=== PATIENT | female | born 1995 | race Two or more races ===

== ENCOUNTER 2018-05-22 18:02 | Emergency (ER) | payer SELFPAY ==
[2018-05-22] MEDS ORDERED: Acetaminophen 500 MG TAB ONE (18:21)
[2018-05-22] MEDS ORDERED: Ibuprofen 800 MG TAB ONE (18:53)
[2018-05-22] MEDS ORDERED: Dexamethasone 10 MG/ML VIAL ONE (18:57)
[2018-05-22 19:02] LABS: #Basophils 0.1 thou/uL (0.0-0.2); #Lymphocytes 1.2 thou/uL (1.20-3.40); #Monocytes 1.1 thou/uL (0.11-0.59); #Neutrophils 7.6 thou/uL (1.40-6.50); %Basophils 0.6 % (0.0-1.0); %Eosinophils 0.1 % (0.0-10.0); %Lymphocytes 12.3 % (28.0-48.0); %Monocytes 11.2 % (0.0-4.0); %Neutrophils 75.8 % (31.0-61.0); Hemoglobin 12.4 g/dL (12.0-16.0); Mean Corpuscular HGB CONC 32.4 g/dL (32.0-36.0); Mean Corpuscular Hemoglobin 27.9 pg (25.0-35.0); Mean Platelet Volume 10.3 fL (7.4-10.4); Platelet Count 141 thou/uL (130-400); RBC Distribution Width 12.9 % (11.5-14.5); Red Blood Cell (RBC) Count 4.44 mill/uL (4.00-5.20)
[2018-05-22 19:04] LABS: MONO NEGATIVE CONTROL ZONE White (Negative) (White); MONO POSITIVE CONTROL Pink Line (Positive) (PINK/RED); Mononucleosis NEGATIVE (NEGATIVE)
[2018-05-22 19:22] LABS: ALT (SGPT) 101 U/L (8-55); AST (SGOT) 51 U/L (5-34); Albumin 4.1 g/dL (3.5-5.0); Alkaline Phosphatase 71 U/L (40-150); Anion Gap 13 mmol/L (10-20); BUN (Urea Nitrogen) 10 mg/dL (7.0-18.7); Bilirubin, Total 0.7 mg/dL (0.2-1.2); Calc. Creatinine Clearance 0 mL/min (70-130); Calcium 9.2 mg/dL (7.8-10.44); Carbon Dioxide 23 mmol/L (22-29); Chloride 101 mmol/L (98-107); Estimated GFR-MDRD 89; Globulin 3.2 g/dL (2.4-3.5); Glucose 107 mg/dL (70-105); Protein, Total 7.3 g/dL (6.0-8.3); Sodium 133 mmol/L (136-145)
[2018-05-22 20:07] LABS: Clarity CLOUDY (Clear)
[2018-05-22 20:08] LABS: Bilirubin Unable to Interpret (Negative); Blood, Urine Unable to Interpret (Negative); Glucose, Urine (Dipstick) Unable to Interpret mg/dL (Negative); Leukocyte Unable to Interpret (Negative); Nitrite Unable to Interpret (Negative); Protein, Urine (Dipstick) Unable to Interpret mg/dL (Neg-Trace); Urobilinogen UNABLE TO INTERPRET mg/dL (0.2-1.0)
[2018-05-22 20:10] LABS: Bacteria/HPF 2+ HPF (None Seen); Hyaline Casts/LPF NONE SEEN LPF (0-3 Hyaline); RBC/HPF GREATER THAN 50-TNTC HPF (0-3)
[2018-05-22] MEDS ORDERED: Bicillin LA 1.2 MILLION UNITS/2 ML SYRINGE ONE (20:19)
== END 2018-05-22 20:47 | disposition home or self-care (01) ==
LOC: ERS 18:02
DX: J02.0 Streptococcal pharyngitis (principal); Z87.891 Personal history of nicotine dependence
CPT/HCPCS: 36415; 80053; 81003; 81015; 85025; 86308; 87081; 87086; 87430; 96372; J0561; J1100

== ENCOUNTER 2018-05-29 21:12 | Emergency (ER) | payer SELFPAY ==
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
== END 2018-05-29 23:04 | disposition home or self-care (01) ==
LOC: ERS 21:12
DX: J34.89 Other specified disorders of nose and nasal sinuses (principal); R68.84 Jaw pain; F41.9 Anxiety disorder, unspecified; Z87.891 Personal history of nicotine dependence
CPT/HCPCS: 70486

== ENCOUNTER 2018-08-23 20:13 | Emergency (ER) | payer SELFPAY ==
[2018-08-23 20:54] LABS: #Basophils 0.1 thou/uL (0.0-0.2); #Eosinphils 0.1 thou/uL (0.0-0.7); #Lymphocytes 1.6 thou/uL (1.20-3.40); #Monocytes 0.4 thou/uL (0.11-0.59); #Neutrophils 8.1 thou/uL (1.40-6.50); %Basophils 0.5 % (0.0-1.0); %Eosinophils 0.6 % (0.0-10.0); %Lymphocytes 15.7 % (21.0-51.0); %Monocytes 3.9 % (0.0-10.0); %Neutrophils 79.2 % (42.0-75.0); Hemoglobin 12.8 g/dL (12.0-16.0); Mean Corpuscular HGB CONC 32.1 g/dL (32.0-36.0); Mean Corpuscular Hemoglobin 28.4 pg (27.0-31.0); Mean Corpuscular Volume 88.5 fL (78.0-98.0); Mean Platelet Volume 9.8 fL (7.4-10.4); Platelet Count 200 thou/uL (130-400); Red Blood Cell (RBC) Count 4.51 mill/uL (4.20-5.40); White Blood Cell (WBC) Count 10.2 thou/uL (4.8-10.8)
[2018-08-23 21:21] LABS: ALT (SGPT) 30 U/L (8-55); AST (SGOT) 16 U/L (5-34); Albumin 4.3 g/dL (3.5-5.0); Alkaline Phosphatase 69 U/L (40-150); Anion Gap 10 mmol/L (10-20); BUN (Urea Nitrogen) 17 mg/dL (7.0-18.7); Bilirubin, Total 0.3 mg/dL (0.2-1.2); Calc. Creatinine Clearance 0 mL/min (70-130); Calcium 9.8 mg/dL (7.8-10.44); Carbon Dioxide 26 mmol/L (22-29); Chloride 106 mmol/L (98-107); Estimated GFR-MDRD 86; Globulin 3.1 g/dL (2.4-3.5); Glucose 89 mg/dL (70-105); Lipase 22 U/L (8-78); Potassium 4.5 mmol/L (3.5-5.1); Protein, Total 7.4 g/dL (6.0-8.3); Sodium 137 mmol/L (136-145)
[2018-08-23 22:32] LABS: Bilirubin Negative (Negative); Blood, Urine Negative (Negative); Clarity CLOUDY (Clear); Glucose, Urine (Dipstick) Negative (Negative); Leukocyte Large (Negative); Nitrite Negative (Negative); Pregnancy Test - Urine (BHCG) POSITIVE (Negative); Pregu Control Background? CLEAR/WHITE (CLR/WHITE); Pregu Control Bar Appear? YES (CONTROL BAR); Protein, Urine (Dipstick) Negative (Neg-Trace); Specific Gravity, Urine 1.027 (1.002-1.036)
[2018-08-23 22:33] LABS: Specific Gravity 1.027 (1.002-1.036)
[2018-08-23 22:34] LABS: Bacteria/HPF None Seen HPF (None Seen); Pathc Cast-AUWi Flag 1.45 (0-2.49); RBC/HPF 0-3 HPF (0-3); WBC/HPF 21-50 HPF (0-3)
[2018-08-23 22:43] LABS: Trichomonas/HPF 2+ HPF (None Seen)
[2018-08-23 22:46] LABS: Hyaline Casts/LPF 0-3 HYALINE CAST LPF (0-3 Hyaline)
[2018-08-24] MEDS ORDERED: metroNIDAZOLE 250 MG TAB ONE (00:45)
[2018-08-24] MEDS ORDERED: Lidocaine 1% PF 5 ML VIAL ONE (00:45)
[2018-08-24] MEDS ORDERED: Azithromycin 250 MG TAB ONE (00:45)
[2018-08-24] MEDS ORDERED: cefTRIAXone\\ROCEPHIN 250 MG VIAL ONE (00:45)
--- NOTE | 2018-08-24 07:56 | ULT ---
PELVIC ULTRASOUND WITH GRAYSCALE AND DOPPLER COLORFLOW IMAGING AND SPECTRAL ANALYSIS: CLINICAL HISTORY: Positive urine test with pelvic pain. FINDINGS: There is evidence of a gestational sac. Internal pole is not visualized. Internal rounded ech ogenicity indicates a yolk sac. No evidence of free pelvic fluid or significant subchorionic hemorrh age. Doppler evaluation is performed, which reveals flow to each ovary. Utilizing gestational sac diameter, the approximate ultrasound age of the gestation is 5 weeks 6 days . Stated clinical dates are 6 weeks. IMPRESSION: Evidence to indicate an early intrauterine gestation with gestational sac and yolk sac slightly less than 6 days by ultrasound parameters. Therefore, recommend correlation with beta hCG values, as well as imaging followup to document appropriate development of the intrauterine gestation. CODE T
[2018-08-24 21:52] LABS: Chlamydia by PCR Not Detected (NotDetected); GC by PCR Not Detected (NotDetected)
== END 2018-08-24 01:11 | disposition home or self-care (01) ==
LOC: ERS 20:13
DX: O23.591 Infection of other part of genital tract in pregnancy, first trimester (principal); O98.311 Other infections with a predominantly sexual mode of transmission complicating pregnancy, first trimester; A59.01 Trichomonal vulvovaginitis; O99.341 Other mental disorders complicating pregnancy, first trimester; F41.9 Anxiety disorder, unspecified; Z87.891 Personal history of nicotine dependence; Z3A.01 Less than 8 weeks gestation of pregnancy
CPT/HCPCS: 36415; 76856; 80053; 81003; 81015; 81025; 83690; 85025; 87480; 87491; 87510; 87591; 87660; 96372; J0696; J2001

== ENCOUNTER 2018-10-18 19:09 | Emergency (ER) | payer MEDICAID, SELFPAY ==
[2018-10-18 20:47] LABS: #Basophils 0.1 thou/uL (0.0-0.2); #Eosinphils 0.1 thou/uL (0.0-0.7); #Lymphocytes 1.7 thou/uL (1.20-3.40); #Monocytes 0.6 thou/uL (0.11-0.59); #Neutrophils 8.3 thou/uL (1.40-6.50); %Basophils 0.5 % (0.0-1.0); %Eosinophils 1.2 % (0.0-10.0); %Lymphocytes 15.6 % (21.0-51.0); %Monocytes 5.6 % (0.0-10.0); %Neutrophils 77.1 % (42.0-75.0); Hemoglobin 11.4 g/dL (12.0-16.0); Mean Corpuscular HGB CONC 33.2 g/dL (32.0-36.0); Mean Corpuscular Volume 87.4 fL (78.0-98.0); Mean Platelet Volume 10.1 fL (7.4-10.4); Platelet Count 163 thou/uL (130-400); Red Blood Cell (RBC) Count 3.93 mill/uL (4.20-5.40); White Blood Cell (WBC) Count 10.7 thou/uL (4.8-10.8)
--- NOTE | 2018-10-18 22:02 | ULT ---
ULTRASOUND OBSTETRICAL: DATE: 10-18-18 HISTORY: 23-year-old female in early second trimester of presents with pelvic pain and leaking fl uid x 10 days. FINDINGS: number: Flores lie: Cephalic Maternal cervix: 6 cm in length, closed. Placenta: Anterior and low lying Amniotic fluid volume: Subjectively normal. heart rate: 155 bpm It is too early to evaluate anatomy in detail. biometry: Head circumference (HC): 9.7 cm 14 w 3 d Biparietal diameter (BPD): 2.6 cm 14 w 4 d Abdominal circumference (AC): 7.9 cm 14 w 2 d Femur length (FL): 1.3 cm 13 w 5 d Average ultrasound age (AUA): 14 w 1 d Estimated date of delivery (LUCY): 04-17-2019 Last menstrual period (LMP): 07-12-2018 Gestational age by LMP: 14 w 0 d Estimated weight (EFW): Too early to estimate. IMPRESSION: 1. Live very early 2nd trimester intrauterine gestation. 2. Estimated gestational age of 14 weeks, 1 day. 3. Cephalic lie. 4. No evidence of complications. JUSTICE Vinson POS: [facility]
[2018-10-19 00:01] LABS: Bilirubin Negative (Negative); Blood, Urine Negative (Negative); Clarity CLEAR (Clear); Glucose, Urine (Dipstick) Negative (Negative); Leukocyte Negative (Negative); Nitrite Negative (Negative); Protein, Urine (Dipstick) Negative (Neg-Trace); Specific Gravity, Urine 1.033 (1.002-1.036); Urobilinogen 0.2 mg/dL (0.2-1.0); pH, Urine 5.5 (5.0-9.0)
== END 2018-10-19 00:39 | disposition home or self-care (01) ==
LOC: ERS 19:09
DX: O99.89 Other specified diseases and conditions complicating pregnancy, childbirth and the puerperium (principal); R39.81 Functional urinary incontinence; O99.342 Other mental disorders complicating pregnancy, second trimester; Z3A.14 14 weeks gestation of pregnancy; Z87.891 Personal history of nicotine dependence
CPT/HCPCS: 36415; 76856; 81003; 84702; 85025; 86900; 86901; 93976

== ENCOUNTER 2018-11-08 15:07 | Outpatient (CLI) | payer MEDICAID ==
--- NOTE | 2018-11-08 16:11 | ULT ---
EXAM: OB ultrasound COMPARISON: None HISTORY: female. Evaluate size, dates, and anatomy. TECHNIQUE: Multiplanar grayscale and color Doppler images were obtained in a transabdominal ult rasound. FINDINGS: There is a single live intrauterine with heart rate of 158 bpm. A limited s urvey was performed which is unremarkable. This was limited secondary to patient's body habitus. The head, lateral ventricles, heart, stomach, umbilical cord insertion, spine, bladder, and extremiti es were unremarkable. Average age of the fetus based off today's examination is 17 weeks 1 day. BPD 3.73 cm -- 17 weeks 3 days HC 14.02 cm -- 17 weeks 3 days AC 11.53 cm -- 17 weeks 2 days FL 2.31 cm -- 17 weeks 0 days The placenta is anterior in location without focal abnormality. Amniotic fluid volume is subjectivel y within normal limits. There is no evidence of placenta previa. IMPRESSION: Single live intrauterine with estimated age of 17 weeks 1 day.
== END 2018-11-08 15:08 | disposition home or self-care (01) ==
LOC: SCSULT 15:07
PROVIDERS: ATTEND Nurse Practitioner
DX: Z34.82 Encounter for supervision of other normal pregnancy, second trimester (principal); Z3A.17 17 weeks gestation of pregnancy
CPT/HCPCS: 76805

== ENCOUNTER 2018-12-14 14:12 | Outpatient (CLI) | payer OTHER ==
--- NOTE | 2018-12-14 15:25 | ULT ---
OB ULTRASOUND: 12/14/18 INDICATIONS: Size and dates and anatomy. There is a single viable intrauterine . Gestational age by ultrasound is 22 weeks, 3 days. BPD: 21 week, 5 days HC: 22 week, 3 days AC: 22 week, 3 days FL: 22 week, 6 days EFW: 508 grams, 22 week, 3 days. Placenta: Anterior. Presentation: Footling breech. Amniotic fluid: Adequate. PARMJIT: 13.69 cm. Cervical length: 6.1 cm. heart rate: 155 beats per minute. anatomy evaluated include intracranial contents, although somewhat limited due to position. No abnormality seen. Four chamber heart, stomach, kidneys, cord insertion, bladder, spine, facial featu res, extremities and three vessel cord were all imaged. The facial features and spine were limited du e to position. No abnormality identified. IMPRESSION: 22 week, 3 day gestation by ultrasound. POS: [facility]
== END 2018-12-14 14:13 | disposition home or self-care (01) ==
LOC: BICULT 14:12
PROVIDERS: ATTEND Obstetrics & Gynecology
DX: Z34.82 Encounter for supervision of other normal pregnancy, second trimester (principal); Z3A.22 22 weeks gestation of pregnancy
CPT/HCPCS: 76805

== ENCOUNTER 2018-12-28 21:32 | Emergency (ER) | payer OTHER | END 2018-12-28 22:25 | disposition home or self-care (01) | LOC: ERS 21:32 | DX: O98.812 Other maternal infectious and parasitic diseases complicating pregnancy, second trimester (principal); B37.3 Candidiasis of vulva and vagina; O99.342 Other mental disorders complicating pregnancy, second trimester; F41.9 Anxiety disorder, unspecified; Z87.891 Personal history of nicotine dependence; Z3A.24 24 weeks gestation of pregnancy | CPT/HCPCS: 87480; 87510; 87660; 99283 ==

== ENCOUNTER 2019-02-17 10:31 | Outpatient (CLI) | payer OTHER ==
--- NOTE | 2019-02-17 11:36 | ULT ---
EXAM: OB ultrasound COMPARISON: 12/14/2018 HISTORY: Gestational diabetes. TECHNIQUE: Multiplanar grayscale and color Doppler images were obtained in a transabdominal ult rasound. FINDINGS: There is a single live intrauterine with heart rate of 144 bpm. Estimated weight is 2487 g. Average age of the fetus based off today's examination is 34 weeks 2 days. BPD 8.26 cm -- 33 weeks 2 days HC 30.70 cm -- 34 weeks 2 days AC 31.66 cm -- 35 weeks 5 days FL 6.52 cm -- 33 weeks 5 days The placenta is anterior in location without focal abnormality. PARMJIT is 16.32 cm which is normal. The cervix is normal in length. There is no evidence of placenta previa. IMPRESSION: Single live intrauterine with estimated age of 34 weeks 2 days. Sizes greater t arce dates. These findings were more concordant on the previous ultrasound.
== END 2019-02-17 10:32 | disposition home or self-care (01) ==
LOC: BICULT 10:31
PROVIDERS: ATTEND Nurse Practitioner
DX: O24.419 Gestational diabetes mellitus in pregnancy, unspecified control (principal); Z3A.34 34 weeks gestation of pregnancy
CPT/HCPCS: 76816

== ENCOUNTER 2019-02-20 18:30 | Emergency (ER) | payer OTHER ==
[2019-02-20] MEDS ORDERED: Lidocaine 1% PF 5 ML VIAL ONE (21:00)
[2019-02-20] MEDS ORDERED: Azithromycin 250 MG TAB ONE (21:00)
[2019-02-20] MEDS ORDERED: cefTRIAXone\\ROCEPHIN 250 MG VIAL ONE (21:00)
[2019-02-20 21:06] LABS: Bilirubin Negative (Negative); Blood, Urine Small (Negative); Glucose, Urine (Dipstick) Negative (Negative); Leukocyte Large (Negative); Nitrite Negative (Negative); Protein, Urine (Dipstick) Negative (Neg-Trace); Urobilinogen 0.2 mg/dL (Less than 2)
[2019-02-20 21:11] LABS: Clarity Cloudy (Clear)
[2019-02-20 21:13] LABS: Bacteria/HPF 3+ HPF (None Seen); Trichomonas/HPF 2+ HPF (None Seen); WBC/HPF Greater Than 50 HPF (0-3)
[2019-02-22 22:37] LABS: Chlamydia by PCR Not Detected (NotDetected); GC by PCR Not Detected (NotDetected)
== END 2019-02-20 21:42 | disposition home or self-care (01) ==
LOC: ERS 18:30
DX: O23.593 Infection of other part of genital tract in pregnancy, third trimester (principal); O23.43 Unspecified infection of urinary tract in pregnancy, third trimester; O99.343 Other mental disorders complicating pregnancy, third trimester; F41.9 Anxiety disorder, unspecified; Z87.891 Personal history of nicotine dependence; Z3A.32 32 weeks gestation of pregnancy
CPT/HCPCS: 81003; 81015; 87086; 87480; 87491; 87510; 87591; 87660; 96372; 99283; J0696; J2001

== ENCOUNTER 2019-03-11 18:08 | Emergency (ER) | payer OTHER | END 2019-03-11 18:37 | disposition home or self-care (01) | LOC: ERS 18:08 | DX: O99.89 Other specified diseases and conditions complicating pregnancy, childbirth and the puerperium (principal); R21 Rash and other nonspecific skin eruption; O24.419 Gestational diabetes mellitus in pregnancy, unspecified control; O99.013 Anemia complicating pregnancy, third trimester; O99.343 Other mental disorders complicating pregnancy, third trimester; F41.9 Anxiety disorder, unspecified; Z87.891 Personal history of nicotine dependence; Z3A.34 34 weeks gestation of pregnancy; Z79.899 Other long term (current) drug therapy | CPT/HCPCS: 99282 ==

== ENCOUNTER 2019-04-01 16:15 | Day surgery (SDC) | payer OTHER ==
[2019-04-01 17:34] VITALS: BMI 46.0
[2019-04-01] MEDS ORDERED: hydrALAZINE 20 MG/ML VIAL SLOW IVP PRN (17:45)
--- NOTE | 2019-04-01 18:19 | HP ---
TIME OF EVALUATION: 1735 hours. REASON FOR EVALUATION: The patient was sent from [facility] from S[facility]hal (nurse practitioner) for monitoring. HISTORY OF PRESENT ILLNESS: This is a 23-year-old primigravida with an EDC of April 17, putting her within the EGA of 37 weeks and 5 days. She was seen earlier at [facility] with S[facility]hal (she usually sees Dr. Herrera) and was sent over here for biophysical profile due to "nondeterminant NST." She has a history of gestational diabetes and she takes insulin because metformin was not controlling her sugars. She has good movement and denies contractions or leakage of fluid. REVIEW OF SYSTEMS: Complete review of systems was completed and is otherwise negative unless specified in the HPI. PAST MEDICAL HISTORY: Negative. PAST SURGICAL HISTORY: Negative. GYNECOLOGICAL HISTORY: Significant for Trichomonas x2 this both treated. MEDICATIONS: Includes her insulin. She takes 10 units of Levemir in the morning and then 9 units of NovoLog with meals. ALLERGIES: NONE. PHYSICAL EXAMINATION: VITAL SIGNS: Her initial blood pressure was 130/83, she is afebrile. heart tones are in the 150s. GENERAL: Clinically, she is in no acute distress, and the uterus is soft and nontender. On perineal inspection, there is no evidence of vaginal bleeding or ruptured membranes. heart tracing shows heart rate of 130s to 140s currently with some minimal variability, but earlier when she first arrived, there was moderate variability with accelerations. There are no pathological decelerations. ASSESSMENT: This is a 23-year-old, G1, P0, with A2 diabetes at 37 weeks and 5 days, states good glycemic control. Here for biophysical profile. Her nonstress test is currently undergoing a sleep cycle, as initially was reactive. PLAN: 1. We will monitor the patient here in Labor and Delivery and continue with blood pressure checks. 2. I have ordered a biophysical profile. Job ID: [id number]
--- NOTE | 2019-04-01 18:35 | ULT ---
US Biophysical Profile: 04/01/2019 5:46 PM CLINICAL HISTORY: 37 week female with gestational diabetes. COMPARISON: None. FINDINGS: heart rate: 149 bpm. Biophysical profile: 8 of 8 IMPRESSION: Normal biophysical profile
--- NOTE | 2019-04-01 18:36 | PDOC.EVN ---
Event Note - Event Note Event Note: BPP 05/05 F/U thursday BPs ok
== END 2019-04-01 18:55 | disposition home or self-care (01) ==
LOC: L&D/OP 16:15
PROVIDERS: ATTEND Obstetrics & Gynecology
DX: O24.414 Gestational diabetes mellitus in pregnancy, insulin controlled (principal); Z3A.37 37 weeks gestation of pregnancy
CPT/HCPCS: 76819; 99282

== ENCOUNTER 2019-04-08 05:30 | Inpatient (IN) | payer OTHER ==
[2019-04-08] MEDS ORDERED: Ondansetron PF 4 MG/2 ML Vial IVP PRN (06:08)
[2019-04-08] MEDS ORDERED: HYDROcodone/Acetaminophen 5/325 mg Tablet PO PRN ×2 (06:08)
[2019-04-08] MEDS ORDERED: hydrALAZINE 20 MG/ML VIAL SLOW IVP PRN (06:08)
[2019-04-08] MEDS ORDERED: Promethazine HCl 25 MG/ML VIAL IM PRN (06:08)
[2019-04-08] MEDS ORDERED: Docusate 100 MG CAP PO PRN (06:08)
[2019-04-08] MEDS ORDERED: Zolpidem Tartrate 5 MG TAB PO PRN (06:08)
[2019-04-08] MEDS ORDERED: Ibuprofen 800 MG TAB PO PRN (06:08)
[2019-04-08] MEDS ORDERED: Lidocaine 1% (PF) 30 ML VIAL SC PRN (06:08)
[2019-04-08] MEDS ORDERED: NS / Oxytocin 40 units/1000ml 1,000 ML IV PRN (06:08)
[2019-04-08] MEDS ORDERED: Lactated Ringer's 1,000 ML IV SCH (06:15)
[2019-04-08] MEDS: Lactated Ringer's 1,000 ML IV SCH (08:40)
[2019-04-08 09:04] LABS: Hemoglobin 11.1 g/dL (12.0-16.0); Mean Corpuscular HGB CONC 33.3 g/dL (32.0-36.0); Mean Corpuscular Hemoglobin 27.9 pg (27.0-31.0); Mean Corpuscular Volume 83.9 fL (78.0-98.0); Mean Platelet Volume 10.7 fL (7.4-10.4); Platelet Count 130 thou/uL (130-400); RBC Distribution Width 13.3 % (11.5-14.5); Red Blood Cell (RBC) Count 3.98 mill/uL (4.20-5.40); White Blood Cell (WBC) Count 8.4 thou/uL (4.8-10.8)
[2019-04-08] MEDS: NS w/ Oxytocin 10 units 500 ML IV SCH ×2 (09:15→23:31)
[2019-04-08 09:39] LABS: Syphilis Antibody Nonreactive (Nonreactive); Syphilis Antibody Index 0.02 S/CO (<1.00 Non-Reactive)
[2019-04-08 09:43] LABS: HBSAg Index 0.15 S/CO (0-0.99); Hep B Surf Ag Non-Reactive S/CO (NonReactive)
[2019-04-08] MEDS ORDERED: HUMULIN R 100 UNITS in Sodium Chloride 0.9% 100 ML IVPB SCH (09:45)
[2019-04-08] MEDS ORDERED: Insulin Regular 300 UNITS/3 ML VIAL IVP SCH (10:00)
[2019-04-08] MEDS: Butorphanol Tartrate 1 MG/ML VIAL SLOW IVP PRN (23:30)
[2019-04-09] MEDS: Butorphanol Tartrate 1 MG/ML VIAL SLOW IVP PRN ×2 (00:46→02:17)
[2019-04-09] MEDS ORDERED: Fentanyl 4 mcg/Bup 0.1% Cadd 100 ML ONE ×2 (03:09→12:09)
[2019-04-09] MEDS ORDERED: Lidocaine 1.5%/Epinephrine 1:200,000 5 ML AMPUL IJ ONE (03:11)
[2019-04-09] MEDS ORDERED: diphenhydrAMINE 50 MG/ML VIAL IVP PRN ×2 (09:17→16:45)
[2019-04-09] MEDS ORDERED: Acetaminophen 325 MG TAB PO PRN (09:17)
[2019-04-09] MEDS ORDERED: Lactated Ringer's 500 ML IV PRN (09:17)
[2019-04-09] MEDS ORDERED: Ondansetron PF 4 MG/2 ML Vial IVP PRN ×3 (09:17→17:00)
[2019-04-09] MEDS ORDERED: ePHEDrine/0.9% NaCl/PF SYRINGE 50 mg/10 ml SLOW IVP PRN (09:17)
[2019-04-09] MEDS ORDERED: Promethazine HCl 25 MG/ML VIAL IM PRN ×2 (09:17→16:45)
[2019-04-09] MEDS ORDERED: Naloxone HCl 0.4 mg/ml Vial IVP PRN ×4 (09:17→16:45)
[2019-04-09] MEDS ORDERED: Fentanyl 4 mcg/Bupivacaine 0.1% Cassette 100 ML EPIDURAL SCH (09:30)
[2019-04-09] MEDS ORDERED: Communication Order-Pharmacy FS SCH ×2 (09:30→16:45)
[2019-04-09] MEDS: NS w/ Oxytocin 10 units 500 ML IV SCH (11:09)
[2019-04-09] MEDS ORDERED: Carboprost 250 MCG/ML AMP ONE (12:48)
[2019-04-09] MEDS ORDERED: Bicitra 30 ML UDCUP ONE (13:12)
[2019-04-09] MEDS: Lactated Ringer's 1,000 ML IV SCH (13:52)
[2019-04-09] MEDS ORDERED: Oxytocin 10 UNITS/ML VIAL ONE ×2 (14:19→15:38)
[2019-04-09] MEDS ORDERED: Lidocaine 2% 10 ML INJ ONE (14:19)
[2019-04-09] MEDS ORDERED: Lidocaine 2% PF 5 ML VIAL ONE (14:20)
[2019-04-09] MEDS ORDERED: Fentanyl 100 MCG/2 ML VIAL ONE ×2 (15:04→15:51)
[2019-04-09] MEDS ORDERED: MORPHINE 5 MG/10 ML PF VIAL ONE (15:05)
[2019-04-09] MEDS ORDERED: Midazolam HCl 2 mg/2 ml Vial ONE (15:17)
[2019-04-09] MEDS ORDERED: L&D-Morphine 4 MG/ML VIAL SLOW IVP PRN (16:45)
[2019-04-09] MEDS ORDERED: Ondansetron HCl/PF 4 MG/2 ML Vial IVP PRN (16:45)
[2019-04-09] MEDS ORDERED: Promethazine HCl 25 MG SUPP PR PRN (16:45)
[2019-04-09] MEDS ORDERED: HYDROmorphone 2 MG/ML VIAL SLOW IVP PRN (16:45)
[2019-04-09] MEDS ORDERED: Ketorolac Tromethamine 30 MG/ML VIAL IVP SCH (16:45)
[2019-04-09] MEDS ORDERED: Naloxone HCl 0.4 mg/ml Vial IV PRN (16:45)
[2019-04-09] MEDS ORDERED: Meperidine HCl/PF 25 MG/ML VIAL SLOW IVP PRN (16:45)
[2019-04-09] MEDS ORDERED: hydrALAZINE 20 MG/ML VIAL SLOW IVP PRN (17:00)
[2019-04-09] MEDS ORDERED: diphenhydrAMINE 25 MG CAP PO PRN (17:00)
[2019-04-09] MEDS ORDERED: Ketorolac Tromethamine 30 MG/ML VIAL ONE (20:08)
[2019-04-09] MEDS: Ketorolac Tromethamine 30 MG/ML VIAL IVP PRN (20:09)
[2019-04-09] MEDS ORDERED: Lidocaine 2% MPF 10 ML AMP (For Epidural Use) ONE (23:00)
[2019-04-09] MEDS ORDERED: Bupivacaine/Epinephrine 0.25% 30 ML VIAL ONE (23:00)
[2019-04-10] MEDS: Lactated Ringer's 1,000 ML IV SCH ×5 (02:27→14:18)
[2019-04-10] MEDS: Docusate Calcium (SURFAK) 240 MG CAP PO SCH ×3 (02:30→21:29)
[2019-04-10] MEDS ORDERED: HYDROcodone/Acetaminophen 5/325 mg Tablet PO PRN (04:45)
[2019-04-10] MEDS: Ketorolac Tromethamine 30 MG/ML VIAL IVP PRN (04:54)
[2019-04-10 07:23] LABS: Hemoglobin 9.2 g/dL (12.0-16.0); Mean Corpuscular HGB CONC 34.2 g/dL (32.0-36.0); Mean Corpuscular Hemoglobin 28.9 pg (27.0-31.0); Mean Corpuscular Volume 84.6 fL (78.0-98.0); Mean Platelet Volume 10.5 fL (7.4-10.4); Platelet Count 107 thou/uL (130-400); RBC Distribution Width 13.1 % (11.5-14.5); Red Blood Cell (RBC) Count 3.19 mill/uL (4.20-5.40); White Blood Cell (WBC) Count 9.3 thou/uL (4.8-10.8)
[2019-04-10] MEDS ORDERED: Adacel (T-DAP) 0.5 ML SYRINGE IM ONE (09:00)
[2019-04-10] MEDS: HYDROcodone/Acetaminophen 5/325 mg Tablet PO PRN ×3 (09:24→21:28)
[2019-04-10] MEDS: Simethicone Chewable 80 MG TAB PO PRN ×3 (09:25→21:29)
[2019-04-10] MEDS: Insulin Glargine 10 UNITS in Pre-Filled Syringe 1 EACH SC SCH (09:56)
[2019-04-10] MEDS: Ibuprofen 800 MG TAB PO SCH ×2 (14:20→21:28)
--- NOTE | 2019-04-10 17:37 | OP ---
DATE OF PROCEDURE: 04/09/2019 PREOPERATIVE DIAGNOSES: 1. A 23-year-old G2, P0-0-1-0, who presented at 38 weeks and 5 days for an induction of labor for large for gestational age and gestational diabetes with insulin on moderate control. 2. Group B Streptococcus negative. 3. Body mass index greater than 40. POSTOPERATIVE DIAGNOSES: 1. A 23-year-old G2, P0-0-1-0, who presented at 38 weeks and 5 days for an induction of labor for large for gestational age and gestational diabetes with insulin on moderate control. 2. Group B Streptococcus negative. 3. Body mass index greater than 40. 4. Arrest of dilation at 3 cm. 5. Live born male with a low transverse section with vacuum assist. Apgars 8 and 9 at 1 and 5 minutes respectively. ORAL SURGERY PHYSICIAN: Dr. Suh, executive vice president and chief operating officer. QUANTITATIVE BLOOD LOSS: 1450. ANESTHESIA: An epidural with a re-dose and IV medications for sedation. PROCEDURE PERFORMED: Primary low transverse section with vacuum assist and extension of fascial incision as well as a Maylard incision to deliver. CLINICAL HISTORY: This patient is a 23-year-old, G2, P0-0-1-0 who presented at 38 weeks and 5 days for an induction of labor by Pitocin for her gestational diabetes. The patient had diagnosis late in her for the diabetes and was started on insulin with moderate control. She was doing a long-acting Levemir and a short-acting with meals. The patient was admitted and started on Pitocin. She made change to 1 cm, 50% effaced, and -3 station. FSE and IUPC were placed after an amniotomy was performed for clear fluid to assist with better tracings given the patient's large body habitus. Her insulin regimen during labor was uncomplicated. She had a blood sugar on admission of 210. She was given 10 units IV of regular insulin, which brought her sugars down to 130. Thereafter, she was continued on a clear liquid carb consistent diet that was low sugar, and she maintained a sugar within the goal range of 80 to 120 during labor. The patient did make change to 3 cm; however, it was very difficult to get her into a consistent contraction pattern. She would go from adequate contractions to inadequate intermittently throughout her entire labor course. After the patient had been more than 6 hours at 3 cm with cervical swelling, the plan was made to deliver by primary low transverse section. The risks, benefits, possible complications as well as alternatives were discussed with the patient, and the patient was taken back to the operating room. DESCRIPTION OF PROCEDURE: The patient was taken back to the operating room, where she was prepped and draped in the usual sterile fashion. Her Tolentino catheter was already draining clear urine and was maintained. She was prepped and draped in the usual sterile fashion and given a leftward tilt. After testing for adequate anesthesia, the father of the baby was invited into the delivery room and the incision was made in the lower pelvis in the Pfannenstiel manner and this was carried down to the fascia. The fascia was nicked in the midline and extended out bilaterally. Chris clamps x2 were used to elevate the fascia from the superior edge of the rectus muscles, and in similar fashion, the inferior edge was liberated from the rectus and pyramidalis muscles. The muscles were then in the midline and the peritoneum was breached. The peritoneal incision was then extended with a combination of sharp and blunt dissection. The abdomen was noted to be extremely tight, and traction several times were used to extend her incision. Once the peritoneum was extended large enough, the bladder blade was placed and a bladder flap was created reflecting the bladder out lower. The hysterotomy incision was then made with a brand new scalpel and this was carried down to the amnion. Once the amniotomy was performed, this incision was extended out bilaterally and the surgeon's hand was placed inside to elevate the head to the incision and deliver the infant through the incision. The was a large baby, and suction was used to clear the fluid around the head. A vacuum was then used to deliver the baby with continued slow soft tissue restriction. The fascia was extended, followed by the Maylard extension with a portion of the rectus muscles on both sides. Once this was performed, the vacuum was used to deliver the . The head was delivered, followed by the anterior shoulder, then the posterior shoulder, then the remainder of the 's body. There were 3 pulls and 2 pop-offs given the had a head full of hair and suction was difficult. Once the was delivered, the cord was doubly clamped and cut, and the was handed over to the Neonatology team in attendance to the delivery. The uterus was then cleansed of all debris and the placenta was manually delivered with 3-vessel cord and it was intact. The uterus was attempted to be exteriorized, but was unable to be delivered through the incision due to the tight nature of the abdomen. An Sarath was placed in the abdomen and the laps and suction were used to visualize the incision. The inferior border was grasped x2 with a ring forceps and the closure then ensued. Then, the first layer was achieved closing the incision. The [id number] was placed in the midline, where significant oozing was still occurring. Then, an imbricating incision suture was placed to complete the closure. The bladder flap was then reapproximated and the gutters were cleansed of all debris and irrigated. Seprafilm was not able to be used due to the tight access. The Sarath was then removed, and the peritoneum was closed in a running fashion. The rectus muscles were then reapproximated on both sides with excellent hemostasis. The fascial incision was also reapproximated and closed prior to the fascial closure. Once these closures were completed, the fascia was closed in a running locking manner to anchor at the edges and then running fashion throughout the rest of the fascial closure. The subcutaneous tissue was copiously irrigated and cautery was used to correct any bleeding. The fat adipose tissue was then closed with several interrupted sutures going from the base poker prop player to the skin layer. The skin was then closed with a running 3-0 Aneudy needle and reinforced with Steri-Strips and Mastisol. The patient tolerated the procedure well and was able to recover in the recovery room in satisfactory condition after being cleansed and de-draped and sponge, needle, lap counts, and instrument counts x2 were correct. The patient had live born male with Apgars of 8 and 9 at 1 and 5 minutes respectively, weighing 9 pounds 13 ounces. Cord gas was 7.15 pH and pCO2 was 61.9. There were no other issues surrounding this delivery. Job ID: [id number]
[2019-04-11] MEDS: Lactated Ringer's 1,000 ML IV SCH ×3 (00:48→17:53)
[2019-04-11] MEDS: NS w/ Oxytocin 10 units 500 ML IV SCH (04:49)
[2019-04-11] MEDS: Ibuprofen 800 MG TAB PO SCH ×3 (05:59→21:21)
[2019-04-11] MEDS: Docusate Calcium (SURFAK) 240 MG CAP PO SCH ×2 (10:26→21:21)
[2019-04-11] MEDS: Simethicone Chewable 80 MG TAB PO PRN (10:28)
[2019-04-11] MEDS: HYDROcodone/Acetaminophen 5/325 mg Tablet PO PRN ×2 (11:21→17:35)
[2019-04-11] MEDS: Insulin Glargine 10 UNITS in Pre-Filled Syringe 1 EACH SC SCH (12:17)
[2019-04-12] MEDS: Ibuprofen 800 MG TAB PO SCH ×2 (06:01→14:16)
[2019-04-12] MEDS: NS w/ Oxytocin 10 units 500 ML IV SCH (06:43)
[2019-04-12] MEDS: Lactated Ringer's 1,000 ML IV SCH ×2 (06:43→14:16)
[2019-04-12] MEDS: Docusate Calcium (SURFAK) 240 MG CAP PO SCH (09:40)
[2019-04-12] MEDS: Insulin Glargine 10 UNITS in Pre-Filled Syringe 1 EACH SC SCH (09:40)
[2019-04-12 12:42] VITALS: BP 118/58; TEMP 98
== END 2019-04-12 19:05 | disposition home or self-care (01) | DRG 787 ==
LOC: L&D 08:01 → 3SW 04-09 20:38
PROVIDERS: ADMIT Obstetrics & Gynecology; ATTEND Obstetrics & Gynecology
PROC: 10D00Z1 Extraction of Products of Conception, Low, Open Approach (ICD-10-PCS; principal; 2019-04-10)
PROC: 3E033VJ Introduction of Other Hormone into Peripheral Vein, Percutaneous Approach (ICD-10-PCS; 2019-04-10)
PROC: 10907ZC Drainage of Amniotic Fluid, Therapeutic from Products of Conception, Via Natural or Artificial Opening (ICD-10-PCS; 2019-04-10)
DX: O24.424 Gestational diabetes mellitus in childbirth, insulin controlled (principal); D62 Acute posthemorrhagic anemia; O36.63X0 Maternal care for excessive fetal growth, third trimester, not applicable or unspecified; O62.1 Secondary uterine inertia; O61.9 Failed induction of labor, unspecified; O99.02 Anemia complicating childbirth; Z3A.38 38 weeks gestation of pregnancy; Z37.0 Single live birth; O76 Abnormality in fetal heart rate and rhythm complicating labor and delivery
CPT/HCPCS: 36415; 36416; 51702; 82805; 85027; 86780; 86850; 86900; 86901; 87340; 88307; J0595; J0690; J1815; J1885; J2001; J2250; J2274; J2590; J3010; J3490; Q0163

== ENCOUNTER 2019-09-15 18:11 | Emergency (ER) | payer OTHER | END 2019-09-15 20:34 | disposition home or self-care (01) | LOC: ERS 18:11 | DX: N61.0 Mastitis without abscess (principal); D64.9 Anemia, unspecified; F41.9 Anxiety disorder, unspecified; F17.210 Nicotine dependence, cigarettes, uncomplicated; Z71.6 Tobacco abuse counseling | CPT/HCPCS: 99406 ==

== ENCOUNTER 2021-02-22 13:24 | Emergency (ER) | payer OTHER, SELFPAY ==
[2021-02-22] MEDS ORDERED: cefTRIAXone\\ROCEPHIN 500 MG VIAL ONE (13:59)
[2021-02-22] MEDS ORDERED: Azithromycin 250 MG TAB ONE (13:59)
[2021-02-22 14:20] LABS: Bacteria/HPF None Seen HPF (None Seen); Bilirubin Negative (Negative); Blood, Urine Negative (Negative); Clarity Clear (Clear); Glucose, Urine (Dipstick) Normal (Negative); Ketone, Urine Negative (Negative); Leukocyte 75 Leu/uL (Negative); Nitrite Negative (Negative); Protein, Urine (Dipstick) Negative (Neg-Trace); RBC/HPF 0-3 HPF (0-3); Specific Gravity, Urine 1.031 (1.002-1.036); Squamous Epithelial 0-3 HPF (0-3); Urobilinogen Normal mg/dL (Less than 2); WBC/HPF 0-3 HPF (0-3)
[2021-02-22 14:25] LABS: Pregnancy Test - Urine (BHCG) Negative (Negative); Pregu Control Background? CLEAR/WHITE (CLR/WHITE); Pregu Control Bar Appear? YES (CONTROL BAR); Specific Gravity 1.031 (1.002-1.036)
[2021-02-24 19:46] LABS: Chlamydia by PCR Not Detected (NotDetected); GC by PCR Not Detected (NotDetected)
== END 2021-02-22 14:14 | disposition home or self-care (01) ==
LOC: ERS 13:24
DX: N72 Inflammatory disease of cervix uteri (principal); N76.0 Acute vaginitis; B96.89 Other specified bacterial agents as the cause of diseases classified elsewhere; B37.3 Candidiasis of vulva and vagina; D64.9 Anemia, unspecified; F17.210 Nicotine dependence, cigarettes, uncomplicated
CPT/HCPCS: 81003; 81015; 81025; 87480; 87491; 87510; 87591; 87660; 96372; 99284; J0696

== ENCOUNTER 2021-07-26 14:17 | Emergency (ER) | payer SELFPAY ==
[2021-07-26 17:54] LABS: #Basophils 0.1 thou/uL (0.0-0.2); #Eosinphils 0.2 thou/uL (0.0-0.7); #Lymphocytes 2.5 thou/uL (1.20-3.40); #Monocytes 0.6 thou/uL (0.11-0.59); #Neutrophils 6.8 thou/uL (1.40-6.50); %Basophils 0.6 % (0.0-1.0); %Eosinophils 1.7 % (0.0-10.0); %Lymphocytes 24.5 % (21.0-51.0); %Monocytes 5.9 % (0.0-10.0); %Neutrophils 67.4 % (42.0-75.0); Hemoglobin 13.1 g/dL (12.0-16.0); Mean Corpuscular HGB CONC 32.9 g/dL (32.0-36.0); Mean Corpuscular Hemoglobin 29.1 pg (27.0-31.0); Mean Corpuscular Volume 88.4 fL (78.0-98.0); Mean Platelet Volume 10.2 fL (7.4-10.4); Platelet Count 166 thou/uL (130-400); RBC Distribution Width 11.8 % (11.5-14.5); Red Blood Cell (RBC) Count 4.49 mill/uL (4.20-5.40)
[2021-07-26 18:02] LABS: BHCG - Serum POSITIVE (NEGATIVE); Pregs Control Background? CLEAR/WHITE (CLR/WHITE); Pregs Control Bar Appear? YES (CONTROL BAR)
[2021-07-26 18:09] LABS: ALT (SGPT) 23 U/L (8-55); AST (SGOT) 13 U/L (5-34); Albumin 4.2 g/dL (3.5-5.0); Alkaline Phosphatase 57 U/L (40-110); Anion Gap 11 mmol/L (10-20); BUN (Urea Nitrogen) 14 mg/dL (7.0-18.7); Bilirubin, Total 0.4 mg/dL (0.2-1.2); Calc. Creatinine Clearance 0 mL/min (70-130); Calcium 9.6 mg/dL (7.8-10.44); Carbon Dioxide 25 mmol/L (22-29); Chloride 106 mmol/L (98-107); Glucose 88 mg/dL (70-105); Protein, Total 7.2 g/dL (6.0-8.3); Sodium 138 mmol/L (136-145)
[2021-07-26] MEDS ORDERED: Lidocaine 1% PF 5 ML VIAL ONE (18:33)
== END 2021-07-26 20:08 | disposition home or self-care (01) ==
LOC: ERS 14:17
DX: O99.719 Diseases of the skin and subcutaneous tissue complicating pregnancy, unspecified trimester (principal); L02.31 Cutaneous abscess of buttock; O99.019 Anemia complicating pregnancy, unspecified trimester; O24.419 Gestational diabetes mellitus in pregnancy, unspecified control; O99.330 Smoking (tobacco) complicating pregnancy, unspecified trimester
CPT/HCPCS: 10060; 36415; 80053; 84702; 84703; 85025

== ENCOUNTER 2023-05-18 00:59 | Emergency (ER) | payer OTHER ==
[2023-05-18] MEDS ORDERED: Acetaminophen 500 MG TAB ONE (01:41)
[2023-05-18 02:54] LABS: BHCG - Serum Negative (NEGATIVE); Pregs Control Background? CLEAR/WHITE (CLR/WHITE); Pregs Control Bar Appear? YES (CONTROL BAR)
[2023-05-18] MEDS ORDERED: Iopamidol 370 76% 100 ML VIAL ONE (09:18)
== END 2023-05-18 03:48 | disposition home or self-care (01) ==
LOC: ERS 00:59 → EEVIPCON 00:59 → ERS 03:48
DX: S60.222A Contusion of left hand, initial encounter (principal); S10.91XA Abrasion of unspecified part of neck, initial encounter; F17.210 Nicotine dependence, cigarettes, uncomplicated; Y04.8XXA Assault by other bodily force, initial encounter
CPT/HCPCS: 36415; 70450; 70498; 84703; Q9967

== ENCOUNTER 2023-07-29 12:30 | Emergency (ER) | payer SELFPAY ==
[2023-07-29] MEDS ORDERED: Dexamethasone 10 MG/ML VIAL ONE (15:07)
[2023-07-29] MEDS ORDERED: Famotidine/PF 20 mg/2ml Vial ONE (15:08)
== END 2023-07-29 15:21 | disposition home or self-care (01) ==
LOC: ERS 12:30
DX: T78.40XA Allergy, unspecified, initial encounter (principal); F17.210 Nicotine dependence, cigarettes, uncomplicated
CPT/HCPCS: 96374; 96375; J1100; S0028